=== PATIENT | male | born 2000 | race Caucasian/White ===

== ENCOUNTER 2019-01-10 07:11 | Emergency (ER) | payer OTHER ==
[~2019-01-10] VITALS: Ht 185.4 cm; Wt 88.6 kg
[2019-01-10] MEDS ORDERED: KETOROLAC TROMETHAMINE 60 MG/2 ML VIAL IM ONE (08:15)
[2019-01-10 09:00] VITALS: BP 146/76
== END 2019-01-10 09:12 | disposition home or self-care (01) ==
LOC: EMS 07:11
DX: S83.92XA Sprain of unspecified site of left knee, initial encounter (principal); X50.9XXA Other and unspecified overexertion or strenuous movements or postures, initial encounter; Y93.44 Activity, trampolining; Y92.89 Other specified places as the place of occurrence of the external cause; Y99.8 Other external cause status
CPT/HCPCS: 29505; 73562; 96372; 99283; J1885